=== PATIENT | male | born 1945 | race Caucasian/White ===

== ENCOUNTER → 2020-10-24 | Outpatient (CLI) | payer OTHER ==
--- NOTE | 2020-10-24 09:35 | RADENCPD ---
Date/Time of Encounter Date of Encounter: Oct 24, 2020 Time of Encounter: 08:56 Encounter This is a procedure consultation Diagnosis: C61 prostate cancer, high risk Requesting physicians: Heraclio Sharpe MD MD Urology Procedure(s): SpaceOAR 16162 Fiducial markers 25182 Subjective: Patient is a 75 yo with PSA screening detected high risk prostate cancer T1c Chas 4+5=9 PSA 10.2 History of superficial bladder cancer treated intravesically He has minimal LUTS, takes flomax QHS He has no bowel complaints He has HPL, HTN, no cardiac interventions Takes ASA 81 mg daily, no blood thinners Objective: VS Ht 69" Wt 149.8 lb T 99.2 P 76 RR 18 BP 161/74 O2 95% NKA Meds reviewed: No contraindications to procedure noted ASA will be held for 1 week prior Well appearing Heart RRR Lungs clear BL deferred Gland 40 cc per MRI report Assessment/plan: Good candidate for SpaceOAR and fiducial placement. Discussed rationale for procedures and decreased acute and late RT toxicity risks associated with SpaceOAR. Described procedure for placement in detail. Patient notes he has not started ADT yet, has an appointment at [facility] on 11/01/20. Will clarify desired timing of procedures with Dr. Vo then schedule. Ideally placement would precede simulation by 1-2 weeks. Discussed that device patient admitting representative may, or may not be present for the procedure. Patient agreed to the above. NEO PEREZ MD Oct 24, 2020 09:35
== END ==
LOC: M ONCR 08:14
PROVIDERS: ATTEND General Practice
DX: C61 Malignant neoplasm of prostate (principal)

== ENCOUNTER → 2020-11-30 | Outpatient (CLI) | payer OTHER ==
[~2020-11-30] MED LIST: ATIV1TAB10 PO; CIPR-249 PO; ENEMENE PR; LIDOCAINE 2% MDV 20ML VIAL XX ONE; UNRESOLVED CLARIFICATION ENTRY XX SCH
[2020-11-30] MEDS: LIDOCAINE VISCOUS 2% SOLN 15ML UDC XX ONE ×2 (10:46→11:15)
--- NOTE | 2020-11-30 12:19 | ROOPDOC ---
[facility] Report Of Operation Report of Operation [facility] Radiation Oncology SpaceOAR & fiducial marker procedure note Name: Jordin Ibarra D.O.B: [birth year] Procedure diagnosis: C61.0 Prostate cancer Procedure date/time: 09/29/21 1100 Physician: Otoniel Perez MD Implant(s): Fiducials (2 seeds per needle): Qfix [id number] Lot# [id number] Exp 03/12/2024 Qty 2 SpaceOAR: [id number] Lot# [id number] Exp 05/22/22 Qty 1 Description of procedure: Informed consent for placement of SpaceOAR and fiducial marker seeds (4) was obtained pre-procedure. A timeout was completed. The patient was placed in the high lithotomy position and a rectal exam with 2% viscous lidocaine was completed. The rectal vault was empty of stool. A chlorhexidine prep of the perineal skin was completed. The trans-rectal ultrasound probe was introduced, the prostate and the rectal bulb were well visualized. 2% lidocaine was infiltrated in the skin and soft tissues of the perineum via a 23 Ga spinal needle under ultrasound guidance. 10cc of local was used. Patient tolerated the block well. Next, fiducial marker seeds were placed via pre-loaded 18 Ga needles under ultrasound guidance. 2 seeds were placed in the left anterior base and apex, respectively. 2 seeds were placed at the right posterior base and apex, respectively. A hydro-dissection of the space between the prostate and rectum was conducted by locating Denonvilliers fascia and injecting 10 cc of isotonic saline through an 18 Ga needle into the potential space there to develop a plane for SpaceOAR implant. Once the hydro-dissection was complete, the needle was withdrawn to mid-gland and 2 cc of 2% lidocaine were injected into the space. The implant needle was then checked in the sagittal and transverse planes for optimal position and once verified, the SpaceOAR implant was placed. The implant was noted to have excellent positioning from base to near-apex. The needle was withdrawn and the ultrasound probe was removed from the rectum. Post procedure vital signs were WNL. The patient tolerated the procedure well without significant discomfort. EBL: <1cc Disposition: Simulation for radiation therapy will occur in the next 1-2 weeks under the direction of Dr. Vo (referring radiation oncologist) The patient will complete antibiotic prophylaxis this evening OTONIEL PEREZ MD Nov 30, 2020 12:19
--- NOTE | 2020-12-04 10:09 | RADENCPD ---
Date/Time of Encounter Date of Encounter: Dec 04, 2020 Time of Encounter: 10:08 Encounter Post-procedure call: Spoke with patient he is doing well. No hematuria or pain with urination. Only complaint is he has not moved his bowels since Friday. He has ex-lax at home. I encouraged him to take this and call back if his constipation fails to resolve. NEO PEREZ MD Dec 04, 2020 10:09
== END ==
LOC: M ONCR 09:48
PROVIDERS: ATTEND General Practice
DX: C61 Malignant neoplasm of prostate (principal)
CPT/HCPCS: 55874; 55876; A4648; C1889